=== PATIENT | female | born 1945 | race Caucasian/White ===

== ENCOUNTER → 2018-05-16 | Outpatient (CLI) | payer MEDICARE ==
[~2018-05-16] MED LIST: SODIUM BICARB 50MEQ 50ML VIAL ONE
[2018-05-16 08:36] LABS: INR 0.95 (0.85-1.15); PARTIAL THROMBOPLASTIN TIME 28.2 SEC (26.3-35.5)
--- NOTE | 2018-05-16 10:40 | NUR ---
U/S GD BILATERAL THYROID LOBES AND RIGHT NECK MASS BX PROCEDURE PERFORMED BY DR. FATIMA . PUNCTURE SITE BILATERAL THYROID LOBS AND RIGHT NECK MASS AND PATIENT TOLERATED PROCEDURE WELL. SPECIMEN COLLECTED BY PATHOLOGY. END OF PROCEDURE AT 1030. BIOPSY NEEDLE REMOVED AND DRESSING APPLIED X2. NO BLEEDING NOTED. DISCHARGE INSTRUCTIONS GIVEN TO PATIENT AND VERBALIZED UNDERSTANDING. DISCHARGED VIA AMBULATORY AAO X3 WITH NO C/O PAIN.
== END | disposition home or self-care (01) ==
LOC: RAH 07:13
PROVIDERS: ATTEND Otolaryngology Plastic Surgery within the Head & Neck
DX: E04.2 Nontoxic multinodular goiter (principal); I10 Essential (primary) hypertension; M19.90 Unspecified osteoarthritis, unspecified site; E78.5 Hyperlipidemia, unspecified; Z79.899 Other long term (current) drug therapy; Z98.890 Other specified postprocedural states; Z79.01 Long term (current) use of anticoagulants
CPT/HCPCS: 36415; 60100; 76942; 85610; 85730; 88161; 88173; 88305 ×2; A4215; J3490; 38505